=== PATIENT | female | born 2000 | race African-American/Black ===

== ENCOUNTER 2025-03-15 19:24 | Emergency (ER) | payer SELFPAY ==
[2025-03-15 19:54] LABS: BASOPHILS ABSOLUTE AUTO 0.05 K/uL (0.00-0.20); BASOPHILS PERCENT AUTO 0.8 % (0.0-2.0); EOSINOPHILS ABSOLUTE AUTO 0.12 K/uL (0.00-0.50); EOSINOPHILS PERCENT AUTO 2.0 % (0.0-5.0); IMMATURE GRAN ABSOLUTE AUTO 0.01 10^3/uL (0.00-0.04); IMMATURE GRAN PERCENT AUTO 0.2 % (0.0-0.4); LYMPHOCYTES ABSOLUTE AUTO 2.61 K/uL (0.50-3.50); LYMPHOCYTES PERCENT AUTO 43.3 % (10.0-50.0); MONOCYTES ABSOLUTE AUTO 0.50 K/uL (0.00-1.00); MONOCYTES PERCENT AUTO 8.3 % (2.0-14.0); NEUTROPHILS ABSOLUTE AUTO 2.74 K/uL (1.40-7.00); NEUTROPHILS PERCENT AUTO 45.4 % (45.0-80.0); PLATELET COUNT,PLT 431 K/uL (150-350); RED BLOOD CELL COUNT 4.57 M/uL (3.77-5.09); RED CELL DISTRIBUTION WIDTH 14.4 % (11.2-14.1); WHITE BLOOD CELL COUNT,WBC 6.0 K/uL (4.0-10.2)
[2025-03-15 20:09] LABS: ALANINE AMINOTRANSFERASE,ALT 19 U/L (12-78); ASPARTATE AMNIOTRANSFERASE,AST 23 U/L (15-37); BILIRUBIN TOTAL 0.4 mg/dL (0.2-1.0); BLOOD UREA NITROGEN,BUN 6 mg/dL (7-18); CARBON DIOXIDE,CO2 20.1 mmol/L (21.0-32.0); CHLORIDE,CL 105 mmol/L (98-107); CREATININE 0.85 mg/dL (0.51-1.17); GLUCOSE RANDOM 95 mg/dL (70-99); POTASSIUM,K 3.6 mmol/L (3.5-5.1); PROTEIN TOTAL,TP 8.2 g/dL (6.4-8.2); SODIUM,NA 143 mmol/L (136-145)
[2025-03-15 20:12] LABS: ESTIMATED GFR 96 mL/min (>=60)
[2025-03-15] MEDS: Take Home: oxyCODONE HCl 5 MG Tab, 5 Tab Pack PO ONE (20:34)
== END 2025-03-15 21:03 | disposition home or self-care (01) ==
LOC: LL.ED 19:24
DX: M79.671 Pain in right foot (principal); Z88.8 Allergy status to other drugs, medicaments and biological substances
CPT/HCPCS: 36415; 73630; 80053; 85025; 99283; A9270